=== PATIENT | male | born 1985 | race Two or more races ===

== ENCOUNTER 2023-03-09 16:54 | Emergency (ER) | payer MEDICAID, OTHER ==
[~2023-03-09] VITALS: Ht 172.7 cm; Wt 82.2 kg
[2023-03-09] MEDS ORDERED: AZIT4SOL RIGHTEYE (18:21)
[2023-03-09] MEDS ORDERED: IBUP-1455 PO (18:21)
[2023-03-09 18:29] VITALS: BP 148/108; PULSE 80; RESP 16; TEMP 98.1; O2SAT 98
[2023-03-10] MEDS ORDERED: AZIT4SOL RIGHTEYE (15:44)
== END 2023-03-09 18:22 | disposition home or self-care (01) ==
LOC: ER 16:54
DX: S05.01XA Injury of conjunctiva and corneal abrasion without foreign body, right eye, initial encounter (principal); X58.XXXA Exposure to other specified factors, initial encounter; Y93.89 Activity, other specified; Y92.89 Other specified places as the place of occurrence of the external cause; Y99.8 Other external cause status